=== PATIENT | female | born 1965 | race African-American/Black ===

== ENCOUNTER 2020-12-24 11:28 | Emergency (ER) | payer OTHER ==
[~2020-12-24] VITALS: Ht 167.6 cm; Wt 78.0 kg
[2020-12-24 12:27] LABS: CLARITY URINE CLEAR (CLEAR); COLOR URINE YELLOW (YELLOW); KETONES URINE NEGATIVE (NEGATIVE); LEUKOCYTE ESTERASE URINE TRACE (NEGATIVE); NITRITE URINE NEGATIVE (NEGATIVE); OCCULT BLOOD URINE TRACE (NEGATIVE); PH URINE 5.5 (4.5-8.0); PROTEIN URINE TRACE (NEGATIVE); SPECIFIC GRAVITY URINE 1.031 (1.005-1.030)
[2020-12-24] MEDS ORDERED: LEVO500T89 MT (14:44)
[2020-12-24] MEDS ORDERED: METR500T MT (14:44)
[2020-12-24 16:13] VITALS: BP 130/80
== END 2020-12-24 16:15 | disposition home or self-care (01) ==
LOC: ER 11:28
DX: T19.2XXA Foreign body in vulva and vagina, initial encounter (principal); E03.9 Hypothyroidism, unspecified; M35.9 Systemic involvement of connective tissue, unspecified; X58.XXXA Exposure to other specified factors, initial encounter; Y93.9 Activity, unspecified; Y92.9 Unspecified place or not applicable; Z88.0 Allergy status to penicillin; Z90.710 Acquired absence of both cervix and uterus
CPT/HCPCS: 81003; 81025; 87210; 99284